=== PATIENT | female | born 1960 | race Caucasian/White ===

== ENCOUNTER 2021-06-23 15:23 | Emergency (ER) | payer OTHER ==
[~2021-06-23] VITALS: Ht 165.1 cm; Wt 60.0 kg
--- NOTE | 2021-06-23 16:22 | RAD ---
EXAMINATION: Right ankle radiograph. VIEWS: 3 COMPARISON: None INDICATION:60 years, Female, injury. FINDINGS: Acute comminuted minimally displaced fracture of the distal fibular diaphysis. No dislocation or subl uxation. Ankle mortise and talar dome are intact. Mild soft tissue swelling about the fracture. Small ankle joint effusion. Calcaneal enthesophyte. IMPRESSION: Acute comminuted minimally displaced distal fibular diaphyseal fracture. Electronically signed by: Leonid Alba MD (06/23/2021 4:20 PM) [email or web address]
[2021-06-23 16:50] VITALS: BP 112/137
--- NOTE | 2021-06-23 16:55 | PHYS DOC ---
Past History Past Surgical History: (CRISELDA SCOTT APRN) General Adult EDM: Chief Complaint: FOOT INJURY PAIN HPI: HPI: Patient is a 60-year-old female who presents to the ER for right ankle pain that started 3 weeks ago. Patient states that she stepped into a hole. She has been walking on her leg without any difficulty.. She has a history of RA. She rates her pain 8 out of 10. No radiation of pain. She states that she took 2 tramadol this morning. (CRISELDA SCOTT APRN) Review of Systems: Review of Systems: 14 body systems of the review of systems have been reviewed. See HPI for pertinent positive and negative responses, otherwise all other systems are negative, nonpertinent or noncontributory (CRISELDA SCOTT APRN) Allergies: Allergies: Allergies Coded Allergies Type Severity Reaction Last Updated Verified aspirin Allergy Unknown 06/23/21 Yes (CRISELDA SCOTT APRN) Physical Exam: PE: Constitutional: Well developed, well nourished, no acute distress, non-toxic appearance. [] HENT: Normocephalic, atraumatic Eyes: PERRL, EOMI, conjunctiva normal, no discharge. [] Neck: Normal range of motion, no stridor Cardiovascular: Normal peripheral perfusion Lungs & Thorax: Normal work of breathing, no tachypnea Abdomen: Bowel sounds normal, soft, no tenderness, no masses, no pulsatile masses. [] Skin: Warm, dry, no erythema, no rash. [] Back: Normal range of motion Extremities: No tenderness, no cyanosis, no clubbing, ROM intact, no edema. [] Neurologic: Alert and oriented X 3, normal motor function, normal sensory function, no focal deficits noted. [] Psychologic: Affect normal, judgement normal, mood normal. [] (CRISELDA SCOTT APRN) Current Patient Data: Vital Signs: Vital Signs Date Time Temp Pulse Resp B/P (MAP) Pulse Ox O2 Delivery O2 Flow Rate FiO2 06/23/21 15:29 95 16 201/125 (150) 97 Room Air (CRISELDA SCOTT APRN) EKG: EKG: [] (CRISELDA SCOTT APRN) Radiology/Procedures: Radiology/Procedures: []PROCEDURE: ANKLE RIGHT 3V EXAMINATION: Right ankle radiograph. VIEWS: 3 COMPARISON: None INDICATION:60 years, Female, injury. FINDINGS: Acute comminuted minimally displaced fracture of the distal fibular diaphysis. No dislocation or subluxation. Ankle mortise and talar dome are intact. Mild soft tissue swelling about the fracture. Small ankle joint effusion. Calcaneal enthesophyte. IMPRESSION: Acute comminuted minimally displaced distal fibular diaphyseal fracture. Electronically signed by: Manuel Alba MD (06/23/2021 4:20 PM) [facility] DICTATED AND SIGNED BY: MANUEL ALBA MD DATE: 06/23/21 1618 CC: HUMAIRA ESPINO DO; EMERGENCY,DEPARTMENT; PCP,NO ~MTH0 0 (CRISELDA SCOTT APRN) Heart Score: C/O Chest Pain: N/A Risk Factors: Risk Factors: DM, Current or recent (<one month) smoker, HTN, HLP, family history of CAD, obesity. Risk Scores: Score 0 - 3: 2.5% MACE over next 6 weeks - Discharge Home Score 4 - 6: 20.3% MACE over next 6 weeks - Admit for Clinical Observation Score 7 - 10: 72.7% MACE over next 6 weeks - Early Invasive Strategies (CRISELDA SCOTT APRN) Course & Med Decision Making: Course & Med Decision Making Pertinent Labs and Imaging studies reviewed. (See chart for details) [] Patient is a 60-year-old female being seen in the ER for right ankle pain. An x-ray was performed she did have a distal fibular fracture. Her leg was placed in a stirrup splint and she is neurovascularly intact pre and post splint placement. Patient tolerated procedure. Patient given pain control in the ER. Patient advised to follow-up with orthopedic doctor and she was given a referral. I discussed with patient all findings and diagnostic testing as well as the need to follow-up with PCP for further evaluation and treatment or return to the ER if any new or worsening symptoms. Strict return precautions were also discussed at length. Patient voiced understanding and agreement with the plan. Patient is hemodynamically stable at the time of disposition. (CRISELDA SCOTT APRN) Dragon Disclaimer: Dragon Disclaimer: This electronic medical record was generated, in whole or in part, using a voice recognition dictation system. (CRISELDA SCOTT APRN) Attending Co-Sign The patient was seen and interviewed as well as examined at the bedside. The chart was reviewed. The case was discussed. Agree with the plan of care. (HUMAIRA ESPINO DO) Departure Departure: Impression: Primary Impression: Fibula fracture Qualified Codes: S82.831A - Other fracture of upper and lower end of right fibula, initial encounter for closed fracture Disposition: HOME / SELF CARE / HOMELESS Condition: GOOD Referrals: PCP,NO (PCP) LACHELLE LEZAMA MD Patient Instructions: Fibular Fracture, Ankle, Adult, Treated with or without Immobilization Additional Instructions: You are seen in the ER today for a fracture or broken bone. You had a splint placed to help with pain and healing. You will need to follow-up with the orthopedic doctors in the orthopedic clinic as soon as possible. Please see attached information regarding follow-up physician. You should perform range of motion exercises to prevent stiffness of your joints. Splints help with the pain and can promote healing but immobility can cause chronic pain over time. Please refer to these attached instructions regarding range of motion exercises. Keep the splint clean and dry avoid getting it wet. If the splint gets wet you will need to have it replaced. You should use ice and elevation to help with the swelling and pain. For the first 24 hours apply ice 20 minutes on 20 minutes off 4 times per day. Ensure that ice is in a plastic bag as to not get the splint wet. You may take NSAID medications (Tylenol, ibuprofen, naproxen) to help with the pain. Please return to the emergency department if you develop any of the following symptoms: Increasing pain that does not improve with treatments. New numbness or tingling Warmth, redness, skin discoloration, skin breakdown, drainage from under splint or near splinted area. Increasing inability to move your extremity or digits. Foul odor coming from splint Fevers or chills Nausea or vomiting Persistent lightheadedness We would be happy to see you for any other concerning symptoms regarding your splinted extremity. CRISELDA SCOTT APRN Jun 23, 2021 16:55 HUMAIRA ESPINO DO Jun 24, 2021 09:16
[2021-06-23] MEDS ORDERED: HYDROcodone/APAP 5/325MG 1 TAB TABLET PO ONE (17:00)
== END 2021-06-23 17:19 | disposition home or self-care (01) ==
LOC: ER 15:23
DX: S82.831A Other fracture of upper and lower end of right fibula, initial encounter for closed fracture (principal); Z88.6 Allergy status to analgesic agent; W22.8XXA Striking against or struck by other objects, initial encounter; Y93.89 Activity, other specified; Y92.89 Other specified places as the place of occurrence of the external cause; Y99.8 Other external cause status
CPT/HCPCS: 29515; 73610; 99283

== ENCOUNTER → 2021-06-28 | Outpatient (CLI) | payer OTHER ==
[2021-06-23 16:50] VITALS: BP 112/137
--- NOTE | 2021-06-28 13:30 | RAD ---
EXAM: Right ankle, 3 views. HISTORY: Fracture follow-up. COMPARISON: 06/23/2021. FINDINGS: 3 views of the right ankle are obtained. There is a mildly displaced comminuted distal fibu lar diaphyseal fracture. There has been no significant interval healing or change in displacement com pared to the prior study. There is slight widening of the medial ankle mortise. There is no osteochon dral lesion. There is bone demineralization. There is a small plantar spur. IMPRESSION: 1. No significant change in a mildly displaced comminuted distal fibular diaphyseal fracture. 2. Bone demineralization. 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 Electronically signed by: Lynn Rees MD (06/28/2021 1:28 PM) [id number]
== END ==
LOC: RAD 13:05
PROVIDERS: ATTEND Podiatrist
DX: S82.891A Other fracture of right lower leg, initial encounter for closed fracture (principal); X58.XXXA Exposure to other specified factors, initial encounter; Y93.89 Activity, other specified; Y92.89 Other specified places as the place of occurrence of the external cause; Y99.8 Other external cause status
CPT/HCPCS: 73610

== ENCOUNTER → 2021-07-22 | Outpatient (CLI) | payer OTHER ==
[2021-06-23 16:50] VITALS: BP 112/137
--- NOTE | 2021-07-22 12:51 | RAD ---
EXAM: XR EXAM OF ANKLE_RIGHT 3VIEWS 07/22/2021 10:16 AM CLINICAL INDICATION: Fibular fracture COMPARISON: Right ankle radiograph 06/28/2021 TECHNIQUE: AP, oblique, lateral views of the right ankle FINDINGS: The bones are diffusely demineralized. A subacute distal fibular diaphyseal fracture is re demonstrated. The fracture is unchanged in alignment with minimal lateral subluxation of the distal f ragment. There is new callus formation along the edge of the fracture. A nondisplaced medial malleola r fracture is unchanged. The fracture line is less conspicuous but persists. The ankle mortise is sym metric and the talar dome is intact. No focal soft tissue abnormality. IMPRESSION: Healing medial malleolar and distal fibular diaphyseal fractures, unchanged in alignment Electronically signed by: Janay Serrano MD (07/22/2021 12:48 PM) [id number]
== END ==
LOC: RAD 10:09
PROVIDERS: ATTEND Podiatrist
DX: S82.51XD Displaced fracture of medial malleolus of right tibia, subsequent encounter for closed fracture with routine healing (principal); M81.8 Other osteoporosis without current pathological fracture; S89.301D Unspecified physeal fracture of lower end of right fibula, subsequent encounter for fracture with routine healing; X58.XXXD Exposure to other specified factors, subsequent encounter
CPT/HCPCS: 73610

== ENCOUNTER → 2021-08-12 | Outpatient (CLI) | payer OTHER ==
--- NOTE | 2021-08-12 12:07 | RAD ---
EXAM: Right ankle 3 views. HISTORY: Right ankle pain, fracture follow-up. COMPARISON: 07/22/2021 FINDINGS: Three views of the right ankle are obtained. There is progression of callus formation about a distal fibular metadiaphyseal fracture, without liam d bridging. There is one cortical width lateral displacement of the distal fracture fragment. There i s some lateral tilt of the talus while weightbearing, though mortise joint spaces appear preserved. P es planus is noted. There is moderate degenerative change throughout the mid foot. There is a moderat e plantar calcaneal spur. Osteopenia is moderate to severe. IMPRESSION: 1. Progression of callus formation about the distal fibular fracture without solid bridging. Ongoing follow-up is recommended. Electronically signed by: Jordi Izquierdo MD (08/12/2021 12:04 PM) [id number]
== END ==
LOC: RAD 10:35
PROVIDERS: ATTEND Podiatrist
DX: S89.301D Unspecified physeal fracture of lower end of right fibula, subsequent encounter for fracture with routine healing (principal); M19.071 Primary osteoarthritis, right ankle and foot; M85.871 Other specified disorders of bone density and structure, right ankle and foot; M77.31 Calcaneal spur, right foot; M21.41 Flat foot [pes planus] (acquired), right foot; X58.XXXD Exposure to other specified factors, subsequent encounter
CPT/HCPCS: 73610

== ENCOUNTER → 2021-09-23 | Outpatient (CLI) | payer OTHER ==
--- NOTE | 2021-09-23 19:20 | RAD ---
Right ankle 3 views: Reason for examination: Follow-up ankle fracture. Comparison is made to previous study dated 08/12/2021. There is a healing fracture at the distal fibular shaft with callus formation and bony bridging prese nt. There does appear to be improvement when compared to previous exams. No new site of fracture or d islocation is seen. The bone density is normal. IMPRESSION: Healing fracture of the distal fibular shaft. Electronically signed by: Eileen Christine MD (09/23/2021 7:18 PM) [id number]
== END ==
LOC: RAD 10:29
PROVIDERS: ATTEND Podiatrist
DX: S82.844D Nondisplaced bimalleolar fracture of right lower leg, subsequent encounter for closed fracture with routine healing (principal); X58.XXXD Exposure to other specified factors, subsequent encounter
CPT/HCPCS: 73610

== ENCOUNTER → 2021-11-11 | Outpatient (CLI) | payer OTHER ==
--- NOTE | 2021-11-11 10:57 | RAD ---
EXAM: Right ankle, 3 views. HISTORY: Pain. COMPARISON: 09/23/2021 FINDINGS: 3 views of the right ankle are obtained. There has been continued interval healing of a dis anabel fibular diaphyseal fracture with partial bridging callus. There is a small plantar spur. There is new sclerosis involving the calcaneus which extends to the subtalar joint. Proposed on suspected dis use osteopenia. There is no osteochondral lesion. IMPRESSION: 1. Progressive healing of a distal fibular diaphyseal fracture. 2. Sclerosis within the calcaneus extending to the subtalar joint, new compared to the prior exam. Th is may be due to a healing nondisplaced fracture or stress reaction. MRI may be useful for characteri zation. 3. Small plantar spur. 4. Disuse osteopenia. Electronically signed by: Lynn Rees MD (11/11/2021 10:55 AM) [id number]
== END ==
LOC: RAD 10:20
PROVIDERS: ATTEND Podiatrist
DX: S82.831D Other fracture of upper and lower end of right fibula, subsequent encounter for closed fracture with routine healing (principal); M85.88 Other specified disorders of bone density and structure, other site; X58.XXXD Exposure to other specified factors, subsequent encounter
CPT/HCPCS: 73610